=== PATIENT | female | born 1990 | race Caucasian/White ===

== ENCOUNTER 2016-06-15 21:38 | Emergency (ER) | payer BC, OTHER ==
[~2016-06-15] VITALS: Ht 172.7 cm; Wt 58.4 kg
[2016-06-15 21:38] VITALS: Ht 172.7 cm; Wt 58.4 kg
[~2016-06-15 21:38] MED LIST: BCPILLS PO
[2016-06-15] MEDS ORDERED: SODIUM CHLORIDE 0.9% 1000ML 1,000 ML IV STA (22:01)
[2016-06-15] MEDS ORDERED: BUPR1SUB23 PO (22:05)
[2016-06-15 22:09] VITALS: O2SAT 98
[2016-06-15 22:16] LABS: BASO % 0.2 %; BASO ABS # 0.02 K/uL (0-0.2); COMPLETE YES; EOS % 0.1 %; HEMATOCRIT 40.1 % (37-47); IG% 0.2 %; LYMPH % 23.9 %; LYMPH ABS # 2.01 K/uL (1.2-3.4); MEAN CELL VOLUME 85.7 fL (80-100); MEAN CORPUSCULAR HEMOGLOBIN 29.7 pg (25-34); MEAN CORPUSCULAR HGB CONC 34.7 g/dl (32-36); MEAN PLATELET VOLUME 11.1 fL (7.4-10.4); MONO % 6.1 %; NEUT % 69.5 %; PLATELET COUNT 217 K/uL (130-400); RED BLOOD COUNT 4.68 M/uL (4.2-5.4)
[2016-06-15 22:35] LABS: PREG INTERNAL NEGATIVE QC NEG CLEAR BACKGROUND; PREG INTERNAL POSITIVE QC POS CONTROL LINE
[2016-06-15 22:36] LABS: PROTHROMBIN TIME (PATIENT) 10.2 SECONDS (9.0-12.0)
--- NOTE | 2016-06-15 22:39 | DIAGNOSTIC IMAGING REPORT ---
CHEST ONE VIEW PORTABLE HISTORY: Overdose. COMPARISON: None. FINDINGS: The lungs are clear. Cardiac silhouette is normal in size. No pleural effusions. No pneumothorax. IMPRESSION: No acute process. Electronically signed by: Billy Vásquez M.D. 06/15/2016 10:38 PM Dictated Date/Time: 06/15/2016 10:37 PM
[2016-06-15 22:43] LABS: URINE APPEARANCE TURBID (CLEAR); URINE BILIRUBIN NEG (NEG); URINE COLOR DK YELLOW; URINE EPITHELIAL CELL AUTO >30 /lpf (0-5); URINE NITRITE NEG (NEG); URINE SPECIFIC GRAVITY 1.025 (1.000-1.030); UROBILINOGEN NEG (NEG)
[2016-06-15 22:47] LABS: BUN/CREATININE RATIO 18.4 (10-20); CALCIUM 8.5 mg/dl (8.5-10.1); CREATININE 0.94 mg/dl (0.60-1.20); POTASSIUM 3.9 mmol/L (3.5-5.1)
[2016-06-15 23:03] LABS: MANUAL MICROSCOPIC REQUIRED? NO; REVIEW REQ? YES; SULFASALICYLIC ACID NEG (NEG)
[2016-06-15 23:04] LABS: BENZODIAZEPINE, URINE NEG (NEG); COCAINE,URINE NEG (NEG); PHENCYCLIDINE, URINE NEG (NEG)
[2016-06-15 23:09] LABS: ACETAMINOPHEN < 2 ug/ml (10-30)
[2016-06-16 00:26] VITALS: BP 142/84; PULSE 92; TEMP 36.8; O2SAT 99
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
[2016-06-19 13:12] LABS: COD UR 68 NG/ML (CUTOFF=50); HYDROCOD UR NEGATIVE NG/ML (CUTOFF=50); HYDROMOR UR NEGATIVE NG/ML (CUTOFF=50); MORPHINE UR 7600 NG/ML (CUTOFF=50); NORHYDROCODONE CONF UR NEGATIVE NG/ML (CUTOFF=50); OXYMORPH UR NEGATIVE NG/ML (CUTOFF=50)
== END 2016-06-16 00:27 | disposition home or self-care (01) ==
LOC: EDBD 21:38 → C.EDC 21:39
DX: T40.1X1A Poisoning by heroin, accidental (unintentional), initial encounter (principal); F17.200 Nicotine dependence, unspecified, uncomplicated; Z79.899 Other long term (current) drug therapy

== ENCOUNTER 2016-07-26 20:34 | Emergency (ER) | payer OTHER ==
[~2016-07-26] VITALS: Ht 175.3 cm; Wt 59.0 kg
[2016-07-26 20:38] VITALS: TEMP 36.7; Ht 175.3 cm; Wt 59.0 kg
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
[2016-07-26 21:53] VITALS: BP 124/78; PULSE 99; O2SAT 98
== END 2016-07-26 21:53 | disposition other institution (70) ==
LOC: EDBD 20:34 → C.EDC 20:48
DX: T40.1X1A Poisoning by heroin, accidental (unintentional), initial encounter (principal); F17.200 Nicotine dependence, unspecified, uncomplicated; Z87.820 Personal history of traumatic brain injury

== ENCOUNTER → 2016-07-26 | Outpatient (CLI) | payer OTHER ==
[~2016-07-26] MED LIST changes: +BUPR1SUB23 PO
== END | disposition home or self-care (01) ==
LOC: C.LAB 21:02
DX: Z02.83 Encounter for blood-alcohol and blood-drug test (principal)

== ENCOUNTER 2017-06-06 22:10 | Observation (INO) | payer OTHER ==
[~2017-06-06] VITALS: Ht 172.7 cm; Wt 70.5 kg
[~2017-06-06 22:10] MED LIST changes: -BUPR1SUB23 PO
[2017-06-06] MEDS ORDERED: ONDANSETRON INJ 2 MG/ML 2 ML VIAL IV STA (22:53)
[2017-06-06] MEDS ORDERED: ONDANSETRON INJ 2 MG/ML 2 ML VIAL ONE (22:54)
[2017-06-06] MEDS ORDERED: PROMETHAZINE HCL INJ 6.25 MG in SODIUM CHLORIDE 0.9% 50ML 50 ML IV STA (23:08)
[2017-06-06] MEDS ORDERED: SODIUM CHLORIDE 0.9% 500ML 500 ML IV STA (23:08)
[2017-06-06] MEDS ORDERED: KETOROLAC TROMETHAMINE 30 MG/ML VIAL IV STA (23:08)
[2017-06-06] MEDS ORDERED: ACETAMINOPHEN 500 MG TAB PO STA (23:08)
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
[2017-06-06 23:47] LABS: HEMATOCRIT 40.1 % (37-47); HEMOGLOBIN 13.3 g/dL (12.0-16.0); MEAN CELL VOLUME 84.8 fL (80-100); MEAN CORPUSCULAR HEMOGLOBIN 28.1 pg (25-34); MEAN CORPUSCULAR HGB CONC 33.2 g/dl (32-36); MEAN PLATELET VOLUME 11.4 fL (7.4-10.4); PLATELET COUNT 220 K/uL (130-400); RED CELL DISTRIBUTION WIDTH CV 13.9 % (11.5-14.5); RED CELL DISTRIBUTION WIDTH SD 42.7 fL (36.4-46.3); WHITE BLOOD COUNT 11.39 K/uL (4.8-10.8)
[2017-06-07] VITALS (7 sets, daily range): BP systolic 91–111; BP diastolic 53–69; PULSE 62–117; TEMP 36.8–37.3; O2SAT 94–99; Ht 172.7 cm; Wt 70.5 kg
[2017-06-07 00:07] LABS: ALBUMIN 3.6 gm/dl (3.4-5.0); ALT/SGPT 67 U/L (12-78); AST/SGOT 60 U/L (15-37); BLOOD UREA NITROGEN 14 mg/dl (7-18); CALCIUM 8.2 mg/dl (8.5-10.1); CARBON DIOXIDE 25 mmol/L (21-32); CREATININE 1.01 mg/dl (0.60-1.20); GLUCOSE 111 mg/dl (70-99); POTASSIUM 4.4 mmol/L (3.5-5.1); SODIUM 138 mmol/L (136-145)
[2017-06-07 00:11] LABS: ALKALINE PHOSPHATASE 36 U/L (45-117); TOTAL PROTEIN 7.1 gm/dl (6.4-8.2)
[2017-06-07] MEDS ORDERED: ONDANSETRON INJ 2 MG/ML 2 ML VIAL IV PRN (03:00)
[2017-06-07] MEDS ORDERED: ACETAMINOPHEN 325 MG TAB PO PRN (03:00)
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
[2017-06-07] MEDS ORDERED: IV FLUIDS COMPLETED PRN (04:30)
--- NOTE | 2017-06-07 05:31 | DIAGNOSTIC IMAGING REPORT ---
CHEST ONE VIEW PORTABLE CLINICAL HISTORY: 27 years-old Female presenting with chest pain, had cpr. TECHNIQUE: Portable upright AP view of the chest was obtained. COMPARISON: 06/15/2016. FINDINGS: Cardiomediastinal silhouette normal. Mild prominence of pulmonary vasculature. Lungs and pleural spaces clear. Osseous structures normal. Upper abdomen normal. IMPRESSION: 1. No acute cardiopulmonary disease. Electronically signed by: Rome Croft M.D. 06/07/2017 5:30 AM Dictated Date/Time: 06/07/2017 5:29 AM
--- NOTE | 2017-06-07 08:05 | DIAGNOSTIC IMAGING REPORT ---
CERVICAL SPINE W/O CLINICAL HISTORY: 27 years-old Female presenting with neck pain, fall, heroin overdose. TECHNIQUE: Multidetector CT of the cervical spine was performed without the use of intravenous contrast. IV contrast: None. A dose lowering technique was used consistent with the principles of ALARA (as low as reasonably achievable). COMPARISON: Plain radiographs of the cervical spine from 2015. CT DOSE (mGy.cm): The estimated cumulative dose is 990.13. FINDINGS: Copy Center Associate topogram: Unremarkable. Straightening of normal cervical lordosis likely positional. No acute fracture or malalignment. Vertebral bodies maintain normal height and alignment. Intervertebral disc spaces preserved. No degenerative change. No neural foraminal or spinal canal narrowing. Skull base intact. Airway patent. Soft tissues of the neck within normal limits. Lung apices clear. IMPRESSION: No acute osseous injury of the cervical spine. Electronically signed by: Rome Croft M.D. 06/07/2017 8:03 AM Dictated Date/Time: 06/07/2017 8:02 AM
--- NOTE | 2017-06-07 08:08 | DIAGNOSTIC IMAGING REPORT ---
HEAD WITHOUT CONTRAST (CT) CLINICAL HISTORY: 27 years-old Female presenting with headache, head trauma. TECHNIQUE: Multidetector CT imaging of the head was performed without the use of intravenous contrast. IV contrast: None. A dose lowering technique was used consistent with the principles of ALARA (as low as reasonably achievable). COMPARISON: 12/16/2014. CT DOSE (mGy.cm): The estimated cumulative dose is 990.13 mGy.cm. FINDINGS: Coremaker Supervisor topogram: Unremarkable. Ventricles and sulci normal in size. Brain parenchyma normal in appearance with preserved quevedo-white differentiation. No mass effect or midline shift. No hemorrhage or acute territorial infarct. No extra-axial fluid collection. Paranasal sinuses and mastoid air cells clear. Calvarium intact. IMPRESSION: 1. No acute intracranial abnormality. Electronically signed by: Rome Croft M.D. 06/07/2017 8:07 AM Dictated Date/Time: 06/07/2017 8:05 AM
--- NOTE | 2017-06-07 14:45 | Progress Note ---
Medicine Progress Note Date & Time of Visit: Jun 07, 2017 at 14:45. Objective Last 8 Hrs Date Time Temp Pulse Resp B/P (MAP) Pulse Ox O2 Delivery O2 Flow Rate FiO2 06/07/17 12:21 36.8 62 16 104/57 (73) 99 06/07/17 12:00 Room Air 06/07/17 08:00 Room Air 06/07/17 07:47 37.0 75 16 91/53 (66) 94 Physical Exam: General-[] Eyes-[] ENT-[] Neck-[] Lungs-[] Heart-[] Abdomen-[] Extremities-[] Neuro-[] Laboratory Results: Last 24 Hours Test 06/06/17 23:28 06/06/17 23:50 White Blood Count 11.39 K/uL Red Blood Count 4.73 M/uL Hemoglobin 13.3 g/dL Hematocrit 40.1 % Mean Corpuscular Volume 84.8 fL Mean Corpuscular Hemoglobin 28.1 pg Mean Corpuscular Hemoglobin Concent 33.2 g/dl RDW Standard Deviation 42.7 fL RDW Coefficient of Variation 13.9 % Platelet Count 220 K/uL Mean Platelet Volume 11.4 fL Sodium Level 138 mmol/L Potassium Level 4.4 mmol/L Chloride Level 106 mmol/L Carbon Dioxide Level 25 mmol/L Anion Gap 7.0 mmol/L Blood Urea Nitrogen 14 mg/dl Creatinine 1.01 mg/dl Est Creatinine Clear Calc Drug Dose 84.4 ml/min Estimated GFR () 88.3 Estimated GFR (Non- 76.2 BUN/Creatinine Ratio 14.1 Random Glucose 111 mg/dl Calcium Level 8.2 mg/dl Total Bilirubin 0.3 mg/dl Aspartate Amino Transf (AST/SGOT) 60 U/L Alanine Aminotransferase (ALT/SGPT) 67 U/L Alkaline Phosphatase 36 U/L Troponin I < 0.015 ng/ml Total Protein 7.1 gm/dl Albumin 3.6 gm/dl Globulin 3.5 gm/dl Albumin/Globulin Ratio 1.0 Human Chorionic Gonadotropin, Qual NEG Salicylates Level < 1.7 mg/dl Acetaminophen Level < 2 ug/ml Urine Color YELLOW Urine Appearance CLOUDY Urine pH 5.0 Urine Specific [place] 1.028 Urine Protein 1+ Urine Glucose (UA) NEG Urine Ketones NEG Urine Occult Blood NEG Urine Nitrite NEG Urine Bilirubin NEG Urine Urobilinogen NEG Urine Leukocyte Esterase NEG Urine WBC (Auto) 5-10 /hpf Urine RBC (Auto) 0-4 /hpf Urine Hyaline Casts (Auto) 5-10 /lpf Urine Epithelial Cells (Auto) >30 /lpf Urine Bacteria (Auto) 1+ Urine Opiates Screen POS Urine Methadone, Qualitative NEG Urine Barbiturates NEG Urine Phencyclidine (PCP) Level NEG Ur Amphetamine/Methamphetamine NEG MDMA (Ecstasy) Screen NEG Urine Benzodiazepines Screen NEG Urine Cocaine Metabolite NEG Urine Marijuana (THC) NEG Assessment & Plan Current Inpatient Medications: Current Inpatient Medications Medications (Trade) Dose Ordered Sig/Luigi Route Start Time Stop Time Status Last Admin Dose Admin Acetaminophen (Tylenol Tab) 650 mg Q4H PRN PO 06/07/17 03:00 07/07/17 02:59 Ondansetron HCl (Zofran Inj) 4 mg Q6H PRN IV 06/07/17 03:00 07/07/17 02:59 Miscellaneous (Iv Fluids Completed) 1 ea PRN PRN N/A 06/07/17 04:30 06/07/18 04:29
[2017-06-07] MEDS ORDERED: NALO1SPR (14:49)
--- NOTE | 2017-06-07 14:54 | Discharge Instructions ---
Discharge Instructions Date of Service Jun 07, 2017. Admission Reason for Admission: Narcotic Overdose . Discharge Discharge Diagnosis / Problem: Narcotic Overdose Discharge Goals Goal(s): Therapeutic intervention Activity Recommendations Activity Limitations: resume your previous activity . Instructions / Follow-Up Instructions / Follow-Up APPOINTMENTS: Please seek counseling. OTHER INSTRUCTIONS: Prescription for nasal Narcan sent to [facility] (Suki Rudd). Please make certain that friends / family know how to use it if it is needed. Seek medical attention if you have: * temperature above 101 * chest pain or trouble breathing * abdominal pain, nausea, vomiting * diarrhea, dark stools or bloody stools * severe headache, trouble with vision, trouble concentrating, trouble walking * any unanswered questions or concerns Call 911 if symptoms are severe. Call if you have any questions or problems. My cell # is [phone]. You can also reach a [facility] hospitalist on duty at [facility] 24 hours a day by calling [phone]. Please take good care of yourself. Darien Lopez . Current Hospital Diet Patient's current hospital diet: Regular Diet Discharge Diet Recommended Diet: Regular Diet Procedures Procedures Performed: CT head CT neck Pending Studies Studies pending at discharge: no Medical Emergencies . Who to Call and When: Medical Emergencies: If at any time you feel your situation is an emergency, please call 911 immediately. . Non-Emergent Contact Non-Emergency issues call your: Primary Care Provider, Hospital Doctor . . "Provider Documentation" section prepared by Darien Lopez. . VTE Core Measure Inpt VTE Proph given/why not?: SCD's
== END 2017-06-07 16:08 | disposition home or self-care (01) ==
LOC: EDBD 22:10 → C.EDB 22:12 → C.MED 06-07 02:31 → ENRESERV 06-07 02:57
PROVIDERS: ADMIT Hospitalist; ATTEND Hospitalist
DX: T40.2X1A Poisoning by other opioids, accidental (unintentional), initial encounter (principal); R09.2 Respiratory arrest; S16.1XXA Strain of muscle, fascia and tendon at neck level, initial encounter; X58.XXXA Exposure to other specified factors, initial encounter; F17.200 Nicotine dependence, unspecified, uncomplicated